=== PATIENT | male | born 1995 | race Caucasian/White ===

== ENCOUNTER 2018-09-29 16:30 | Emergency (ER) | payer MEDICAID ==
[~2018-09-29] VITALS: Ht 170.2 cm; Wt 70.0 kg
[2018-09-29 16:33] VITALS: BP 126/81
== END 2018-09-29 22:04 | disposition left against medical advice (07) ==
LOC: ER 18:13
DX: R10.9 Unspecified abdominal pain (principal); Z53.21 Procedure and treatment not carried out due to patient leaving prior to being seen by health care provider